=== PATIENT | female | born 1975 | race Two or more races ===

== ENCOUNTER 2017-11-02 11:19 | Emergency (ER) | payer SELFPAY | END 2017-11-02 12:48 | disposition home or self-care (01) | LOC: ER 11:19 | DX: H66.92 Otitis media, unspecified, left ear (principal) | CPT/HCPCS: 99283 ==

== ENCOUNTER 2019-03-06 12:36 | Emergency (ER) | payer SELFPAY ==
[~2019-03-06] VITALS: Ht 152.4 cm; Wt 70.3 kg
[~2019-03-06 12:36] MED LIST: AMOX1TAB10 PO; HYDR-3164 PO; PANT40TA5 PO
[2019-03-06 13:03] LABS: BASO % 1 % (0-3); EOS # 0.2 x10^3/uL (0.0-0.7); EOS % 3 % (0-3); HEMATOCRIT 38.7 % (36.0-47.0); HEMOGLOBIN 13.4 g/dL (12.0-15.5); LYMPH # 2.2 x10^3/uL (1.0-4.8); LYMPH % 29 % (24-48); MEAN CORPUSCULAR HEMOGLOBIN 32 pg (25-35); MEAN CORPUSCULAR HGB CONC 35 g/dL (31-37); MEAN CORPUSCULAR VOLUME 91 fL (79-100); MONO # 0.6 x10^3/uL (0.0-1.1); MONO % 8 % (0-9); NEUT # 4.4 x10^3uL (1.8-7.7); NEUT % 60 % (31-73); PLATELET COUNT 253 x10^3/uL (140-400); RED BLOOD COUNT 4.27 x10^6/uL (3.50-5.40); RED CELL DISTRIBUTION WIDTH 12.9 % (11.5-14.5); WHITE BLOOD COUNT 7.4 x10^3/uL (4.0-11.0)
--- NOTE | 2019-03-06 13:12 | PHYS DOC ---
Past Medical History Past Medical History: No Pertinent History Additional Past Medical Histor: sinus infection Past Surgical History: No Surgical History Alcohol Use: None Drug Use: None Adult General Chief Complaint Chief Complaint: CHEST PAIN HPI HPI Translation phone was offered for communication as patient speaks Greek. Patient's [id number] is at bedside and is translating reporting patient does speak some Macedonian and understands more than she is able to communicate. 43-year-old female presents to ER via POV for complaints of mid chest pain which started yesterday. Patient states she's had a intermittent cough for the past 2 months and does have yellow phlegm intermittently. Patient denies shortness of air or fever. Patient states she does feel it is hard to take a deep breath. Patient states chest pain increases with coughing episodes. She was seen by chiropractor yesterday and had acupuncture and reports after adjustments she did have increased chest pain. Patient is pain radiates from mid chest. Patient denies swelling, neck or back pain, recent travel, or smoking history. Patient states she has an IUD with LMP first week of February. She reports her appetite has been normal. Patient denies urinary symptoms. Review of Systems Review of Systems Constitutional: Denies fever or chills. Denies fatigue Eyes: Denies change in visual acuity, redness, or eye pain [] HENT: Denies nasal congestion or sore throat [] Respiratory: Denies shortness of breath. Reports prod. cough Cardiovascular: Mid CP- denies radiation GI: Denies abdominal pain, nausea, vomiting, bloody stools or diarrhea [] : Denies dysuria or hematuria [] Musculoskeletal: Denies back/neck pain or joint pain [] Integument: Denies rash, swelling or skin lesions [] Neurologic: Denies headache, focal weakness or sensory changes. Denies dizziness All other systems were reviewed and found to be within normal limits, except as documented in this note. Current Medications Current Medications Current Medications Medications (Trade) Dose Ordered Sig/Francis Start Time Stop Time Status Last Admin Dose Admin Albuterol/ Ipratropium (Duoneb) 3 ml 1X ONCE 03/06/19 13:15 03/06/19 13:16 DC 03/06/19 13:12 3 ML Prednisone (Prednisone) 40 mg 1X ONCE 03/06/19 13:15 03/06/19 13:16 DC 03/06/19 13:08 40 MG Allergies Allergies Allergies Coded Allergies Type Severity Reaction Last Updated Verified No Known Drug Allergies 09/12/13 No Physical Exam Physical Exam Constitutional: Well developed, well nourished, no acute distress, non-toxic appearance. [] HENT: Normocephalic, atraumatic, oropharynx moist, nose normal. [] Eyes: Pupils equal, conjunctiva normal, no discharge. [] Neck: Normal range of motion, no tenderness, supple, no stridor. [] Cardiovascular: Heart rate regular rhythm, no murmur [] Lungs & Thorax: Bilateral breath sounds clear to auscultation- diminished in bases. Resp. equal/nonlabored. Speaking in full sentences Abdomen: Bowel sounds normal, soft, no tenderness, no masses, no pulsatile masses. [] Skin: Warm, dry, no erythema, no rash. [] Back: No tenderness, no CVA tenderness. [] Extremities: No tenderness, no cyanosis, no clubbing, ROM intact, no edema. [] Neurologic: Alert and oriented X 3, normal motor function, normal sensory function, no focal deficits noted. [] Psychologic: Affect normal, judgement normal, mood normal. [] Current Patient Data Vital Signs Vital Signs Date Time Temp Pulse Resp B/P (MAP) Pulse Ox O2 Delivery O2 Flow Rate FiO2 03/06/19 14:03 64 18 134/78 (96) 96 Room Air 03/06/19 12:39 98.0 98.0 Lab Values Laboratory Tests Test 03/06/19 12:50 03/06/19 13:00 03/06/19 13:11 White Blood Count 7.4 x10^3/uL (4.0-11.0) Red Blood Count 4.27 x10^6/uL (3.50-5.40) Hemoglobin 13.4 g/dL (12.0-15.5) Hematocrit 38.7 % (36.0-47.0) Mean Corpuscular Volume 91 fL (79-100) Mean Corpuscular Hemoglobin 32 pg (25-35) Mean Corpuscular Hemoglobin Concent 35 g/dL (31-37) Red Cell Distribution Width 12.9 % (11.5-14.5) Platelet Count 253 x10^3/uL (140-400) Neutrophils (%) (Auto) 60 % (31-73) Lymphocytes (%) (Auto) 29 % (24-48) Monocytes (%) (Auto) 8 % (0-9) Eosinophils (%) (Auto) 3 % (0-3) Basophils (%) (Auto) 1 % (0-3) Neutrophils # (Auto) 4.4 x10^3uL (1.8-7.7) Lymphocytes # (Auto) 2.2 x10^3/uL (1.0-4.8) Monocytes # (Auto) 0.6 x10^3/uL (0.0-1.1) Eosinophils # (Auto) 0.2 x10^3/uL (0.0-0.7) Basophils # (Auto) 0.0 x10^3/uL (0.0-0.2) D-Dimer ([place]) 0.27 ug/mlFEU (0.00-0.50) Sodium Level 139 mmol/L (136-145) Potassium Level 4.0 mmol/L (3.5-5.1) Chloride Level 105 mmol/L (98-107) Carbon Dioxide Level 25 mmol/L (21-32) Anion Gap 9 (6-14) Blood Urea Nitrogen 10 mg/dL (7-20) Creatinine 0.7 mg/dL (0.6-1.0) Estimated GFR (Cockcroft-Gault) 90.9 BUN/Creatinine Ratio 14 (6-20) Glucose Level 101 mg/dL (70-99) H Calcium Level 8.9 mg/dL (8.5-10.1) Magnesium Level 2.0 mg/dL (1.8-2.4) Total Bilirubin 0.4 mg/dL (0.2-1.0) Aspartate Amino Transferase (AST) 22 U/L (15-37) Alanine Aminotransferase (ALT) 30 U/L (14-59) Alkaline Phosphatase 91 U/L (46-116) Troponin I Quantitative < 0.017 ng/mL (0.000-0.055) Total Protein 7.1 g/dL (6.4-8.2) Albumin 3.6 g/dL (3.4-5.0) Albumin/Globulin Ratio 1.0 (1.0-1.7) Urine Collection Type Unknown Urine Color Yellow Urine Clarity Clear Urine pH 8.5 Urine Specific [place] 1.020 Urine Protein Negative mg/dL (NEG-TRACE) Urine Glucose (UA) Negative mg/dL (NEG) Urine Ketones (Stick) Negative mg/dL (NEG) Urine Blood Negative (NEG) Urine Nitrite Negative (NEG) Urine Bilirubin Negative (NEG) Urine Urobilinogen Dipstick 1.0 mg/dL (0.2 mg/dL) Urine Leukocyte Esterase Negative (NEG) Urine RBC 1-2 /HPF (0-2) Urine WBC Rare /HPF (0-4) Urine Squamous Epithelial Cells Mod /LPF Urine Bacteria Few /HPF (0-FEW) Urine Mucus Marked /LPF POC Urine HCG, Qualitative Hcg negative (Negative) Laboratory Tests 03/06/19 12:50 Laboratory Tests 03/06/19 12:50 EKG EKG EKG obtained 03/06/19 at [address] Anderson Sinus rhythm Rate 64 No STEMI Radiology/Procedures Radiology/Procedures PROCEDURE: CHEST PA & LATERAL EXAM: CHEST 2 VIEWS. HISTORY: Cough and chest pain. COMPARISON: 12/31/2015. FINDINGS: Frontal and lateral views of the chest are obtained. There are no confluent infiltrates. The lungs are expanded to the 11th posterior ribs. There is no pneumothorax or pleural effusion. The heart is not enlarged. IMPRESSION: 1. No confluent infiltrates. Hyperinflation. Correlate for air trapping versus deep inspiratory effort. Electronically signed by: Cecilio Boo MD (03/06/2019 1:36 PM) [facility] DICTATED and SIGNED BY: EMILIANA BOO MD DATE: 03/06/19 0519 Course & Med Decision Making Course & Med Decision Making Pertinent Labs and Imaging studies reviewed. (See chart for details) 1350: Pt was evaluated in the ER for complaints of mid chest pain and ongoing two-month history of cough which is been intermittently productive. Patient has had no coughing episodes while in the ER. Chest x-ray was obtained with no acute findings. EKG with no acute ST elevation or STEMI and troponin was negative. D- dimer was obtain as patient has IUD which was 0.27. Other labs unremarkable. UA negative for infection and UCG was negative. Discussed test results with patient and her family. Patient reports with DuoNeb treatment and dose of prednisone her symptoms much improved. Patient reports she feels she is able to take a deeper breath. On reexamination she has increased air movement throughout all lung price. Respirations are equal and nonlabored. With improved symptoms and test results discussed plans for home discharge with patient to follow-up with her primary care physician if symptoms persist or with concerns. Discussed plans for prescription for prednisone for her to start tomorrow as initial dose given in the ER. Education provided on signs and symptoms to return to ER. Discharge instructions were discussed. HEART score 0. Dragon Disclaimer Dragon Disclaimer This electronic medical record was generated, in whole or in part, using a voice recognition dictation system. Departure Departure Impression: Primary Impression: Cough Additional Impression: Chest pain Disposition: HOME, SELF-CARE Condition: STABLE Referrals: NO PCP (PCP) Patient Instructions: Chest Pain (Nonspecific), Cough, Adult Additional Instructions: Drink plenty of fluids. Tylenol and/or ibuprofen as needed for pain as directed on container. If symptoms persist follow-up with your primary care physician for reevaluation and further care. Scripts Prednisone (PREDNISONE) 50 Mg Tablet 1 TAB PO DAILY, #4 TAB Start 03/07/19 Prov: CLINTON LYONS APRN 03/06/19 Problem Qualifiers CLINTON LYONS APRN Mar 06, 2019 13:12
[2019-03-06 13:15] LABS: CALCIUM 8.9 mg/dL (8.5-10.1); CREATININE 0.7 mg/dL (0.6-1.0); GFR 90.9
[2019-03-06] MEDS ORDERED: IPRATRPIUM/ALBUTEROL 0.5/2.5MG 3 ML NEBU. NEB ONE (13:15)
[2019-03-06] MEDS ORDERED: predniSONE 20 MG TABLET PO ONE (13:15)
[2019-03-06 13:19] LABS: ALBUMIN 3.6 g/dL (3.4-5.0); TOTAL BILIRUBIN 0.4 mg/dL (0.2-1.0); TOTAL PROTEIN 7.1 g/dL (6.4-8.2)
[2019-03-06 13:26] LABS: BILIRUBIN,URINE NEGATIVE (NEG); CLARITY,URINE CLEAR; COLOR,URINE YELLOW; NITRITE,URINE NEGATIVE (NEG); PH,URINE 8.5; PROTEIN,URINE NEGATIVE (NEG-TRACE)
[2019-03-06 13:30] LABS: BACTERIA,URINE FEW /HPF (0-FEW); SQUAMOUS EPITHELIAL CELL,UR MOD /LPF
[2019-03-06 13:31] LABS: WBC,URINE RARE /HPF (0-4)
--- NOTE | 2019-03-06 13:39 | RAD ---
EXAM: CHEST 2 VIEWS. HISTORY: Cough and chest pain. COMPARISON: 12/31/2015. FINDINGS: Frontal and lateral views of the chest are obtained. There are no confluent infiltrates. The lungs are expanded to the 11th posterior ribs. There is no pneumothorax or pleural effusion. The heart is not enlarged. IMPRESSION: 1. No confluent infiltrates. Hyperinflation. Correlate for air trapping versus deep inspiratory effort. Electronically signed by: Cecilio Boo MD (03/06/2019 1:36 PM) [facility]
[2019-03-06 14:03] VITALS: BP 134/78
[2019-03-06] MEDS ORDERED: PRED50TA PO (14:10)
--- NOTE | 2019-03-07 08:18 | EKG ---
[facility] [address] [place] [address] Test Date: 2019-03-06 Test Time: 12:42:09 Pat Name: SUMEET HEAD Department: Room: Gender: F Dining Service Supervisor: : 1975 Requested By: CLINTON LYONS Order Number: [id number] Reading MD: Measurements Intervals [place] Rate: 64 P: 43 RI: 152 QRS: 55 QRSD: 84 T: 34 QT: 390 QTc: 402 Interpretive Statements SINUS RHYTHM NO SPECIFIC ECG ABNORMALITIES RI6.01 No previous ECG available for comparison
== END 2019-03-06 14:17 | disposition home or self-care (01) ==
LOC: ER 12:36
DX: R07.89 Other chest pain (principal); R05 Cough
CPT/HCPCS: 36415; 71046; 80053; 81001; 81025; 83735; 84484; 85025; 85379; 93005; 94640; 99285; J7512; J7620

== ENCOUNTER → 2019-07-20 | Outpatient (CLI) | payer SELFPAY ==
[~2019-07-20] MED LIST changes: -PANT40TA5 PO; +PANT40TA77 PO; +PRED50TA PO
--- NOTE | 2019-07-20 11:03 | RAD ---
PELVIS W/TV History: History of bilateral ovarian cysts, IUD Comparison: None. Findings: Multiple transabdominal sonographic images of pelvis are submitted. Uterus measured 7.9 x 4.4 x 5.6 cm. There is IUD present in the endometrial cavity. Left ovary measured about 4.6 x 3.6 x 4.3 cm. There is anechoic lesion left ovary about 3.5 x 2.9 x 2.9 cm. There is normal color flow and low resistance vascularity of the left ovary. Right ovary measured 3.1 x 2.3 x 3.2 cm. There is a hypoechoic lesion of the right ovary about 2.1 x 1.7 x 1.7 cm with mild internal echoes. There is normal color flow of the right ovary, also normal low resistance vascularity. Transvaginal ultrasound: Multiple transvaginal sonographic images of the pelvis are submitted. There is again IUD present in the endometrial cavity. There is mild fluid in the endometrial cavity. There is minimal free fluid in the cul-de-sac. There are some nabothian cysts. Endometrium measured about 0.8 cm in overall thickness. There is a focus of hypoechogenicity of the left uterus about 0.8 x 0.7 x 0.9 cm, internally nearly anechoic with increased through transmission, no associated vascularity color Doppler imaging. Impression: 1. There is IUD present in the endometrial cavity, nonspecific minimal dependent in the endometrial cavity. 2. There is mild nonspecific free fluid in the posterior cul-de-sac. 3. There is what likely represents a partially collapsed cyst of the left uterus. 4. There is a simple cyst of the ovary, slightly complicated cyst of the right ovary. Electronically signed by: Herve Deleon MD (07/20/2019 11:00 AM) [id number]
== END | disposition home or self-care (01) ==
LOC: US 09:20
PROVIDERS: ATTEND Obstetrics & Gynecology
DX: N83.291 Other ovarian cyst, right side (principal); N88.8 Other specified noninflammatory disorders of cervix uteri; Z97.5 Presence of (intrauterine) contraceptive device
CPT/HCPCS: 76830; 76856

== ENCOUNTER 2019-09-12 10:12 | Day surgery (SDC) | payer SELFPAY ==
[~2019-09-12 10:12] MED LIST changes: +BUPIVACAINE-EPI 0.25%-1:200000 MPF 30 ML VIAL. INJ ONE; +HYDROmorphone 2 MG/ML VIAL IV PRN; +IV RINGERS,LACTATED 1000ML 1,000 ML IV SCH; +LIDOCAINE 1% PF 2 ML VIAL. ID PRN; +LIDOCAINE 2% PF 5 ML VIAL. ONE; +MORPHINE SULFATE 2 MG/ML VIAL. IV PRN; +MULT1CAP15 PO; +ONDANSETRON PF 4 MG/2 ML VIAL. IV PRN; +PROCHLORPERAZINE 10 MG/2 ML VIAL. IV PRN; +PROPOFOL 20 ML IV ONE; +ROCURONIUM 50 MG/5 ML VIAL. ONE; +SURGICEL HEMOSTAT 4X8 EACH. ONE; +fentaNYL PF VIAL 100 MCG/2 ML VIAL IV PRN; +fentaNYL PF VIAL 100 MCG/2 ML VIAL ONE
[2019-09-12] MEDS ORDERED: FAMOTIDINE 20 MG/2 ML VIAL ONE (11:21)
[2019-09-12] MEDS ORDERED: DESFLURANE 31 TO 60 MINUTES IH ONE (11:21)
[2019-09-12] MEDS ORDERED: DEXAMETHASONE SOD PHOS 4 MG/ML VIAL ONE (11:21)
[2019-09-12] MEDS ORDERED: GLYCOPYRROLATE 1 MG/5 ML VIAL. ONE (11:35)
[2019-09-12] MEDS ORDERED: NEOSTIGMINE METHYLSULFATE 5 MG/5 ML SYRINGE. ONE (11:35)
[2019-09-12] MEDS ORDERED: ONDANSETRON PF 4 MG/2 ML VIAL. ONE (11:35)
--- NOTE | 2019-09-12 12:01 | PDOC ---
BRIEF OPERATIVE NOTE Date: Sep 12, 2019 Pre-Op Diagnosis ROV Cyst CPP Post-Op Diagnosis TERRELL Cyst CPP Procedure Performed [facility]C TERRELL Cystectomy Bilateral Salpingectomy Surgeon Dr. Horne Assembly Detailer Assistant Manager Retail: Krystle Anesthesia Type: General Blood Loss 5 ml Specimens Obtained TERRELL cyst wall Ankush. fallopian tubes Findings nml size uterus, nml fallopian tubes ankush. except Right paratubal cyst, nml ROV, TERRELL cyst 4 cm size Complications none Operative Note see dictation SERVANDO HORNE Jr, MD Sep 12, 2019 12:01
--- NOTE | 2019-09-12 12:02 | DISCH ---
DISCHARGE INSTRUCTIONS Condition on Discharge Condition on Discharge: Stable Activity After Discharge Activity Instructions for Disc: Activity as tolerated Lifting Instructions after Dis: No heavy lifting Driving Instructions after Dis: Do not drive today Diet after Discharge Diet after Discharge: Regular Contacting the DRRichi after DC Call your doctor for: Concerns you may have Follow-Up Follow up with: Dr. Horne in 1 wk SERVANDO HORNE Jr, MD Sep 12, 2019 12:02
[2019-09-12] MEDS ORDERED: OXYC-325 PO (12:35)
--- NOTE | 2019-09-12 12:46 | OP ---
DATE OF SURGERY: 09/12/2019 PREOPERATIVE DIAGNOSES: 1. Right ovarian cyst. 2. Chronic pelvic pain. POSTOPERATIVE DIAGNOSES: 1. Left ovarian cyst. 2. Chronic pelvic pain. PROCEDURE: Laparoscopic left ovarian cystectomy and bilateral salpingectomy. SURGEON: Servando Horne MD TANK TENDER: Krystle. ANESTHESIA: GETA. ESTIMATED BLOOD LOSS: 5 mL. COMPLICATIONS: None. FINDINGS: Normal sized uterus, normal fallopian tubes bilaterally except the right paratubal cyst, normal right ovary, left ovary demonstrated ovarian cyst of about 4 cm size. SUMMARY: The patient is a 43-year-old female who was counseled on the risks, benefits and expectations of laparoscopic ovarian cystectomy and bilateral salpingectomy. The patient also desired to have a ParaGard IUD removed and voiced with a consent to proceed with surgery. DESCRIPTION OF PROCEDURE: The patient was taken to surgery suite and placed in dorsal lithotomy position. She was prepped with Betadine solution for vaginal prep and ChloraPrep for abdominal prep. After adequate anesthesia, bivalve speculum was placed vaginally. Anterior lip of the cervix grasped with single-tooth tenaculum. The ParaGard IUD was removed with ring forceps. The acorn uterine manipulator was then placed. [place] speculum was removed. Attention was now placed on abdomen. Small transverse skin incision made just below the umbilicus with a scalpel. The Veress needle was then placed through the infraumbilical incision site. The abdomen was allowed to insufflate up to 1-1/2 liters CO2 gas. The Veress needle was then removed, 5 mm trocar was placed. The scope was positioned. Uterus appeared normal size. Fallopian tubes appeared normal bilaterally with the exception of right paratubal cyst of about 2 cm size. Right ovary appeared normal. Left ovary demonstrated 4 cm ovarian cyst. Remainder of abdominal cavity appeared normal. An additional incision was made on the left lower quadrant, which a 5 mm trocar was placed. A second incision in left lower quadrant, which a 12 mm trocar was placed. With aid of graspers and EnSeal device, the left ovarian cyst wall was excised. The remaining cyst wall was fulgurated and was hemostatic. Next, we then proceeded with the salpingectomy in which the left fallopian tube was dissected away from the pelvic sidewall as well as from the uteroovarian pedicle, with the aid of the EnSeal device. Same process took place with the right adnexa. The patient tolerated the procedure well. The areas were all hemostatic. Normal saline was left in the posterior cul-de-sac. The trocars were removed under direct visualization. Abdomen was allowed to deflate as much as possible along with mechanical manipulation. The 12 mm trocar site was closed at the fascial layer using 2-0 Vicryl suture in [id number] manner. The three skin incisions were closed at the skin level using 4-0 Vicryl suture in subcuticular manner. A 0.25% Marcaine with epinephrine was injected at each incision site. Uterine acorn manipulator and single-tooth tenaculum were removed. The patient tolerated the procedure well and was taken to recovery room in stable condition. Sponge and needle count correct x 3. SERVANDO HORNE MD DR: MARTY/darya JOB#: [id number] / [id number]
[2019-09-12] MEDS ORDERED: HYDROcodone/APAP 5/325MG 1 TAB TABLET ONE (13:00)
[2019-09-12] MEDS ORDERED: oxyCODONE/APAP 5/325 1 TAB TABLET PO ONE (13:00)
[2019-09-12 13:23] VITALS: BP 119/65
--- NOTE | 2019-09-15 14:06 | PATHOLOGY ---
[facility] Accession Number: [id number] . 01 Material submitted: . PART A: ovary - LEFT OVARIAN CYST WALL. Modifiers: left PART B: fallopian tube - RIGHT FALLOPIAN TUBE. Modifiers: right PART C: ovary - LEFT OVARY AND FALLOPIAN TUBE. Modifiers: left . 01 Clinical history: . Pelvic pain, ovarian cystectomy . 02 Diagnosis: A. "Left ovarian cyst wall", removal: - Portions of corpus luteum cyst. . B. Fallopian tube, right, removal: - Fallopian tube with simple paratubal cyst. . C. Fallopian tube, left, removal: - Fallopian tube with simple paratubal cyst. (SKM/db; 09/15/2019) LBQ 09/15/2019 1109 Local . 02 Electronically signed: . Jelani Devlin MD, Pathologist NPI- [id number] . 01 Gross description: . A. The specimen is received in formalin, labeled "Oni Contreras, Helene, left ovarian cyst wall" and consists of 2 segments of pink-goodwin to yellow-orange tissue measuring 1.3 x 0.7 x 0.3 cm and 1.7 x 0.9 x 0.5 cm which are entirely submitted in A1. . B. The specimen is received in formalin, labeled "Oni Contreras, Helene, right fallopian tube" and consists of a fimbriated fallopian tube measuring 4.8 cm in length and up to 0.5 cm in diameter with a paratubal cyst measuring 1.7 x 1.2 cm containing clear fluid. Sectioning reveals a well-defined lumen and account manager sales representative sections are submitted in B1. . C. The specimen is received in formalin, labeled "Oni Contreras, Helene, left fallopian tube" and consists of a fimbriated fallopian tube measuring 4.4 cm in length and up to 0.6 cm in diameter with focal hemorrhage and a paratubal cyst measuring 0.8 cm. Sectioning reveals a well-defined lumen and account manager sales representative section is submitted in C1. (SDY; 09/13/2019) SYU/SYU 09/13/2019 1535 Local . 02 Pathologist provided ICD-10: N83.12, N83.8 . 02 CPT . 917905, 915679, 667349 Specimen Comment: A courtesy copy of this report has been sent to [phone], [phone] Specimen Comment: [id number] Specimen Comment: Report sent to / DR RICHARDS Performed at: 01 [facility] [address] [facility] [address], [place] [id number] MD Pepe Morel MD Phone: [phone] Performed at: 02 [facility] [address] [place], [place] [id number] MD Marcial Connors MD Phone: [phone]
== END 2019-09-12 13:30 | disposition home or self-care (01) ==
LOC: SURG 10:12
PROVIDERS: ATTEND Obstetrics & Gynecology
DX: N83.202 Unspecified ovarian cyst, left side (principal); N83.12 Corpus luteum cyst of left ovary; N83.8 Other noninflammatory disorders of ovary, fallopian tube and broad ligament; K21.9 Gastro-esophageal reflux disease without esophagitis
CPT/HCPCS: 58661; 58662; 81025; A7015; J0690; J1100; J2001; J2405; J2704; J2710; J3010; J3490; J7030

== ENCOUNTER 2020-03-24 09:31 | Emergency (ER) | payer SELFPAY ==
[~2020-03-24] VITALS: Ht 160 cm; Wt 62.0 kg
[~2020-03-24 09:31] MED LIST changes: -BUPIVACAINE-EPI 0.25%-1:200000 MPF 30 ML VIAL. INJ ONE; -HYDROmorphone 2 MG/ML VIAL IV PRN; -IV RINGERS,LACTATED 1000ML 1,000 ML IV SCH; -LIDOCAINE 1% PF 2 ML VIAL. ID PRN; -LIDOCAINE 2% PF 5 ML VIAL. ONE; -MORPHINE SULFATE 2 MG/ML VIAL. IV PRN; -ONDANSETRON PF 4 MG/2 ML VIAL. IV PRN; +OXYC-325 PO; -PROCHLORPERAZINE 10 MG/2 ML VIAL. IV PRN; -PROPOFOL 20 ML IV ONE; -ROCURONIUM 50 MG/5 ML VIAL. ONE; -SURGICEL HEMOSTAT 4X8 EACH. ONE; -fentaNYL PF VIAL 100 MCG/2 ML VIAL IV PRN; -fentaNYL PF VIAL 100 MCG/2 ML VIAL ONE
[2020-03-24 10:01] VITALS: BP 131/85
[2020-03-24] MEDS ORDERED: ERYTHROMYCIN 0.5% OPHTH OINTMENT 1GM TUBE. OU ONE (10:15)
[2020-03-24] MEDS ORDERED: AMOX1TAB61 PO (10:25)
[2020-03-24] MEDS ORDERED: CETI10TA74 PO (10:25)
--- NOTE | 2020-03-24 10:25 | PHYS DOC ---
Past Medical History Past Medical History: No Pertinent History Additional Past Medical Histor: sinus infection Past Surgical History: No Surgical History Smoking Status: Never Smoker Alcohol Use: None Drug Use: None General Adult EDM: Chief Complaint: EYE PROBLEMS HPI: HPI: Patient is a 44 year old female who presents with right eye swelling. Patient states this is been ongoing for the last week. She denies any visual changes. She does not have any pain. She does have some irritation and tearing. She does have some crusting in the morning. She denies any pain with movement of the eye. She is also noticed some itching and sneezing lately. Review of Systems: Review of Systems: General: Denies fever, chills, sweats, fatigue Eyes: Reports eye redness, tearing, irritation HENT: Denies rhinorrhea, sore throat, earache Respiratory: Denies cough, shortness of breath, wheezing Cardiac: Denies edema, palpitations, chest pain GI: Denies abdominal pain, Nausea, vomiting MSK: Denies back pain, neck pain Skin: Denies rash, jaundice Neuro: Denies headache, dizziness Psychiatric: Denies SI/HI Heart Score: Risk Factors: Risk Factors: DM, Current or recent (<one month) smoker, HTN, HLP, family history of CAD, obesity. Risk Scores: Score 0 - 3: 2.5% MACE over next 6 weeks - Discharge Home Score 4 - 6: 20.3% MACE over next 6 weeks - Admit for Clinical Observation Score 7 - 10: 72.7% MACE over next 6 weeks - Early Invasive Strategies Current Medications: Current Medications Medications (Trade) Dose Ordered Sig/Francis Start Time Stop Time Status Last Admin Dose Admin Erythromycin (Romycin) 0.25 inch 1X ONCE 03/24/20 10:15 03/24/20 10:16 DC Allergies: Allergies: Allergies Coded Allergies Type Severity Reaction Last Updated Verified No Known Drug Allergies 09/08/19 No Physical Exam: PE: General: Awake, alert, NAD. Well Nourished, well hydrated. Cooperative HEENT: Atraumatic, EOMI, PERRL, airway patent, moist oral mucosa, right conjun ctival injection, right upper eyelid swelling, no drainage Neck: Supple, trachea midline Respiratory: CTA bilaterally, normal effort, no wheezing/crackles CV: RRR, no murmur, cap refill <2 GI: Soft, nondistended, nontender, no masses MSK: No obvious deformities Skin: Warm, dry, intact Neuro: A&O x3, speech NL, sensory and motor grossly intact, no focal deficits Psych: Normal affect, normal mood, not suicidal or homicidal Current Patient Data: Vital Signs: Vital Signs Date Time Temp Pulse Resp B/P (MAP) Pulse Ox O2 Delivery O2 Flow Rate FiO2 03/24/20 10:01 97.7 62 18 131/85 (100) 100 Room Air 97.7 EKG: EKG: [] Radiology/Procedures: Radiology/Procedures: [] Course & Med Decision Making: Course & Med Decision Making Pertinent Labs and Imaging studies reviewed. (See chart for details) Patient is a 44-year-old female presents to the emergency room complaining of e ye redness. She does not have any visual changes. Given that this is been ongoing for a week it is likely that this is due to bacterial conjunctivitis. She does have some upper eyelid swelling. We will treat her with topical and oral antibiotics. She does not have any pain with eye movements making septal cellulitis highly unlikely. We will also place her on Zyrtec for likely allergies. Patient's test results and vitals while in the ED were fully reviewed and discussed with the patient. Patient is stable and at this time does not need admission to the hospital. We have discussed strict return precautions and the importance of following up with their Primary Care Physician. Patient stated understanding and was given an opportunity to ask any questions. Patient is in agreement with plan. Dragon Disclaimer: Dragdarrion Disclaimer: This electronic medical record was generated, in whole or in part, using a voice recognition dictation system. Departure Departure Impression: Primary Impression: Conjunctivitis Additional Impressions: Preseptal cellulitis of right eye Allergies Disposition: HOME, SELF-CARE Condition: GOOD Referrals: DONNIE RICHARDS MD (PCP) Patient Instructions: Bacterial Conjunctivitis, Cuvs-sm-[id number] Scripts Cetirizine Hcl (ZYRTEC) 10 Mg Tablet 1 TAB PO DAILY, #30 TAB 2 Refills Prov: FARZANA HILLS MD 03/24/20 Amoxicillin/Potassium Clav (AUGMENTIN 875-125 TABLET) 1 Each Tablet 1 TAB PO Q12HR, #20 TAB Prov: FARZANA HILLS MD 7/4/20 Justicifation of Admission Dx: Justifications for Admission: Justification of Admission Dx: No FARZANA HILLS MD Mar 24, 2020 10:25
== END 2020-03-24 10:37 | disposition home or self-care (01) ==
LOC: ER 09:31
DX: H10.9 Unspecified conjunctivitis (principal); L03.213 Periorbital cellulitis; T78.40XA Allergy, unspecified, initial encounter
CPT/HCPCS: 99283

== ENCOUNTER 2020-08-04 08:34 | Emergency (ER) | payer SELFPAY ==
[~2020-08-04] VITALS: Ht 162.6 cm; Wt 64.0 kg
[~2020-08-04 08:34] MED LIST changes: +AMOX1TAB61 PO; +CETI10TA74 PO
[2020-08-04 08:59] VITALS: BP 134/76
[2020-08-04] MEDS ORDERED: PRED20TA PO (09:11)
[2020-08-04] MEDS ORDERED: NAPR-682 PO (09:11)
--- NOTE | 2020-08-04 09:12 | PHYS DOC ---
Past Medical History Past Medical History: No Pertinent History Additional Past Medical Histor: sinus infection Past Surgical History: Hysterectomy Smoking Status: Never Smoker Alcohol Use: None Drug Use: None General Adult EDM: Chief Complaint: SHOUDLER HPI: HPI: Patient is a 44 year old female who presented to ER with left shoulder pain that she been experience more than 4 months. The pain started bothering her when she raises her shoulder up to about 90 degrees. Patient has been evaluated by her physician, had x-ray of her left shoulder, did not show any acute problem. Patient continued to have pain. Patient denies any injury except she lifts heavy stuffs at work. Patient denies any numbness or tingling sensation in her upper extremity. Review of Systems: Review of Systems: Constitutional: Denies fever or chills. [] Eyes: Denies change in visual acuity. [] HENT: Denies nasal congestion or sore throat. [] Respiratory: Denies cough or shortness of breath. [] Cardiovascular: Denies chest pain or edema. [] GI: Denies abdominal pain, nausea, vomiting, bloody stools or diarrhea. [] : Denies dysuria. [] Musculoskeletal: Positive for left shoulder pain Integument: Denies rash. [] Neurologic: Denies headache, focal weakness or sensory changes. [] Endocrine: Denies polyuria or polydipsia. [] Lymphatic: Denies swollen glands. [] Psychiatric: Denies depression or anxiety. [] Heart Score: Risk Factors: Risk Factors: DM, Current or recent (<one month) smoker, HTN, HLP, family history of CAD, obesity. Risk Scores: Score 0 - 3: 2.5% MACE over next 6 weeks - Discharge Home Score 4 - 6: 20.3% MACE over next 6 weeks - Admit for Clinical Observation Score 7 - 10: 72.7% MACE over next 6 weeks - Early Invasive Strategies Allergies: Allergies: Allergies Coded Allergies Type Severity Reaction Last Updated Verified No Known Drug Allergies 09/08/19 No Physical Exam: PE: Constitutional: Well developed, well nourished, no acute distress, non-toxic appearance. [] HENT: Normocephalic, atraumatic, bilateral external ears normal, oropharynx mois t, no oral exudates, nose normal. [] Eyes: PERRLA, EOMI, conjunctiva normal, no discharge. [] Neck: Normal range of motion, no tenderness, supple, no stridor. [] Cardiovascular:Heart rate regular rhythm, no murmur [] Lungs & Thorax: Bilateral breath sounds clear to auscultation [] Abdomen: Bowel sounds normal, soft, no tenderness, no masses, no pulsatile masses. [] Skin: Warm, dry, no erythema, no rash. [] Back: No tenderness, no CVA tenderness. [] Extremities: Left shoulder with full range of motion, patient started having pain in her left shoulder when her left shoulder raised to 90 degree angle. Neurologic: Alert and oriented X 3, normal motor function, normal sensory function, no focal deficits noted. [] Psychologic: Affect normal, judgement normal, mood normal. [] Current Patient Data: Vital Signs: Vital Signs Date Time Temp Pulse Resp B/P (MAP) Pulse Ox O2 Delivery O2 Flow Rate FiO2 08/04/20 08:59 97.4 74 18 134/76 (95) 96 Room Air 97.4 EKG: EKG: [] Radiology/Procedures: Radiology/Procedures: [] Course & Med Decision Making: Course & Med Decision Making Pertinent Labs and Imaging studies reviewed. (See chart for details) Patient is suspected have rotator cuff problem, she will need to follow-up with her family physician for outpatient evaluation with MRI of her left shoulder. Patient will need to follow-up with orthopedic surgeon after that. Patient is amenable to plan of care Anival Disclaimer: Anival Disclaimer: This electronic medical record was generated, in whole or in part, using a voice recognition dictation system. Departure Departure Impression: Primary Impression: Rotator cuff strain Disposition: 01 DC HOME SELF CARE/HOMELESS Condition: STABLE Referrals: DONNIE RICHARDS MD (PCP) PLEASE FOLLOW UP WITH YOUR DOCTOR FOR FURTHER EVALUATION WITH MRI of your left shoulder. Patient Instructions: Rotator Cuff Tendinitis Additional Instructions: Please follow up with your family physician for further evaluation of your left shoulder with MRI. Scripts Naproxen Sodium (ANAPROX DS) 550 Mg Tablet 1 TAB PO BID PRN for PAIN for 15 Days, #30 TAB 0 Refills Prov: NEVIN HANLEY DO 08/04/20 Prednisone (PREDNISONE) 20 Mg Tablet 1 TAB PO DAILY for 12 Days, #12 TAB Prov: NEVIN HANLEY DO 08/04/20 NEVIN HANLEY DO Aug 04, 2020 09:11
== END 2020-08-04 09:21 | disposition home or self-care (01) ==
LOC: ER 08:34
DX: S46.012A Strain of muscle(s) and tendon(s) of the rotator cuff of left shoulder, initial encounter (principal); X50.9XXA Other and unspecified overexertion or strenuous movements or postures, initial encounter; Y93.89 Activity, other specified; Y92.89 Other specified places as the place of occurrence of the external cause; Y99.8 Other external cause status
CPT/HCPCS: 99283

== ENCOUNTER 2021-03-07 14:14 | Emergency (ER) | payer SELFPAY ==
[~2021-03-07] VITALS: Ht 157.5 cm; Wt 64.1 kg
[~2021-03-07 14:14] MED LIST changes: +NAPR-682 PO; +PRED20TA PO
--- NOTE | 2021-03-07 15:31 | PHYS DOC ---
Past Medical History Past Medical History: No Pertinent History Additional Past Medical Histor: sinus infection Past Surgical History: Hysterectomy Smoking Status: Never Smoker Alcohol Use: None Drug Use: None General Adult EDM: Chief Complaint: UPPER EXTREMITY PAIN HPI: HPI: Patient is a 45 year old female patient who presents to the ED today complaining of moderate pain to the left biceps. Patient states she was lifting a 50 pound bag of dog food when she had a pop sound from the biceps. Patient states she developed extreme pain after that. States the pain is worse on range of motion. Patient is [place]ic-speaking and the daughter is interpreting Review of Systems: Review of Systems: Constitutional: Denies fever or chills. [] GI: Denies abdominal pain, nausea, vomiting, bloody stools or diarrhea. [] : Denies dysuria. [] Musculoskeletal: Reports biceps pain to the left. Denies back pain Integument: Denies rash. [] Neurologic: Denies headache, focal weakness or sensory changes. [] Psychiatric: Denies depression or anxiety. [] Heart Score: C/O Chest Pain: N/A Risk Factors: Risk Factors: DM, Current or recent (<one month) smoker, HTN, HLP, family history of CAD, obesity. Risk Scores: Score 0 - 3: 2.5% MACE over next 6 weeks - Discharge Home Score 4 - 6: 20.3% MACE over next 6 weeks - Admit for Clinical Observation Score 7 - 10: 72.7% MACE over next 6 weeks - Early Invasive Strategies Allergies: Allergies: Allergies Coded Allergies Type Severity Reaction Last Updated Verified No Known Drug Allergies 03/07/21 No Physical Exam: PE: Constitutional: Well developed, well nourished, no acute distress, non-toxic appearance. [] Skin: Warm, dry, no erythema, no rash. [] Back: No tenderness, no CVA tenderness. [] Extremities: Left biceps appears swollen. There is tenderness over the biceps. Patient able to flex and extend the left upper extremity at the elbow. Difficulty raising the left upper extremity above the shoulder level. +2 left radial pulse. Cap refill less than 2 seconds to left fingers. Sensation intact Neurologic: Alert and oriented X 3, normal motor function, normal sensory function, no focal deficits noted. [] Psychologic: Affect normal, judgement normal, mood normal. [] EKG: EKG: [] Radiology/Procedures: Radiology/Procedures: []PROCEDURE: HUMERUS LEFT Examination: 2 views of the left humerus HISTORY: History of injury, upper arm pain COMPARISON: 08/10/2021 FINDINGS: The alignment of the humerus grossly appears unremarkable. There is no acute fracture or dislocation identified. Impression: No acute osseous findings. Electronically signed by: Edi German MD (03/07/2021 3:56 PM) [id number] DICTATED and SIGNED BY: EDI GERMAN MD DATE: 03/07/21 [id number] 0 Course & Med Decision Making: Course & Med Decision Making Pertinent Labs and Imaging studies reviewed. (See chart for details) This is a 45-year-old female patient presenting to the ED today with left biceps pain that began after lifting a 50 pound dog food bag. There is suspicion for biceps tear. Left humerus x-rays interpreted by radiologist are negative for any acute findings Spoke with Dr. Potter, he requested we put patient in a sling and she can follow- up as an outpatient Ice elevation encouraged. Dragon Disclaimer: Dragon Disclaimer: This electronic medical record was generated, in whole or in part, using a voice recognition dictation system. Departure Departure Impression: Primary Impression: Biceps muscle strain Qualified Codes: S46.212A - Strain of muscle, fascia and tendon of other parts of biceps, left arm, initial encounter Disposition: HOME / SELF CARE / HOMELESS Condition: STABLE Referrals: NO PCP (PCP) ROSSANA POTTER MD follow up next week Patient Instructions: Muscle Strain Additional Instructions: Your xray of the left upper extremity is negative. Please wear the sling provided and follow up with the orthopedic provided next week. Try to ice and elevate the extremity Scripts Naproxen (NAPROXEN) 500 Mg Tablet 1 TAB PO BID for pain, #30 TAB 0 Refills Prov: JUS GORDILLO MACHINE FEED OPERATOR 03/07/21 Hydrocodone/Acetaminophen (Hydrocodone-Acetamin 5-325 mg) 1 Each Tablet 1 EACH PO Q6HRS, #20 TAB Prov: JUS GORDILLO MACHINE FEED OPERATOR 03/07/21 JUS GORDILLO APRN Mar 07, 2021 15:31
--- NOTE | 2021-03-07 15:59 | RAD ---
Examination: 2 views of the left humerus HISTORY: History of injury, upper arm pain COMPARISON: 08/10/2021 FINDINGS: The alignment of the humerus grossly appears unremarkable. There is no acute fracture or di slocation identified. Impression: No acute osseous findings. Electronically signed by: Edi German MD (03/07/2021 3:56 PM) [id number]
[2021-03-07] MEDS ORDERED: NAPR-514 PO (16:21)
[2021-03-07] MEDS ORDERED: HYDR-2759 PO (16:21)
[2021-03-07 16:27] VITALS: BP 117/64
== END 2021-03-07 16:27 | disposition home or self-care (01) ==
LOC: ER 14:14
DX: S46.212A Strain of muscle, fascia and tendon of other parts of biceps, left arm, initial encounter (principal); X50.9XXA Other and unspecified overexertion or strenuous movements or postures, initial encounter; Y93.89 Activity, other specified; Y92.89 Other specified places as the place of occurrence of the external cause; Y99.8 Other external cause status
CPT/HCPCS: 73060; 99283; A4565